=== PATIENT | female | born 1985 | race Caucasian/White ===

== ENCOUNTER 2024-06-04 18:18 | Emergency (ER) | payer OTHER, SELFPAY ==
--- NOTE | ~2024-06-04 | CT_ITS ---
EXAMINATION: CT ABDOMEN AND PELVIS WITHOUT CONTRAST CLINICAL INFORMATION: right flank pain, hematuria COMPARISON: None available. TECHNIQUE: Multidetector volumetric imaging was performed from the superior aspect of the liver through the pubic symphysis. Sagittal and coronal reformatted images were obtained on the technologist's workstation. This CT examination was performed using dose optimization techniques as appropriate, variously including the following: *Automated exposure control *Adjustment of mA and/or kV according to patient size (this includes techniques or standardized protocols for targeted exams where dose is matched to indication/reason for exam; i.e. extremities or head) *Use of iterative reconstruction technique DLP: 1141 mGy-cm FINDINGS: LUNG BASES: The visualized lung bases are unremarkable. LIVER, GALLBLADDER, AND BILIARY TREE: Diffuse low-attenuation of liver parenchyma due to fatty change. No focal liver lesion or intrahepatic bile duct dilatation. The gallbladder is unremarkable with no evidence of radiopaque gallstones, gallbladder wall thickening, or obvious pericholecystic inflammatory changes. PANCREAS: Unremarkable. SPLEEN: Unremarkable. ADRENAL GLANDS: Unremarkable. KIDNEYS AND URETERS: The kidneys are normal in size, shape, and attenuation. No hydronephrosis, hydroureter, or calculi seen. No perinephric stranding. BLADDER: Unremarkable. GASTROINTESTINAL TRACT: The small and large bowel are unremarkable. The appendix is unremarkable. ABDOMINAL WALL: No significant hernia is appreciated. LYMPH NODES: Normal. VASCULAR: Unremarkable. PELVIC VISCERA: Unremarkable. OSSEOUS STRUCTURES: Unremarkable. CT/CT abdomen pelvis wo IV con IMPRESSION: 1. No acute abnormality CT scan abdomen pelvis. 2. Diffuse fatty change of liver. 3. No urinary calculi or hydronephrosis. Fleischner guidelines were followed. Electronically signed by: Ilir Machado MD 06/04/2024 10:04 PM EDT
--- NOTE | 2024-06-04 19:28 | ED.ABDPAIN ---
HPI - Abdominal Pain General Chief Complaint: Urogenital-Female Stated Complaint: Sharp pain in ribs/Nausea sent UC Time Seen by Provider: 06/04/24 22:33 Source: patient, RN notes reviewed and old records reviewed Mode of arrival: ambulatory Limitations: no limitations History of Present Illness ED Provider: Ana AZEVEDO narrative: 38-year-old female presents for evaluation of right flank pain and lower abdominal pain. Her pain started 4 days ago. She endorses cloudy urine. She also endorses frequency but denies burning with urination Her pain waxes and wane is currently a 5/10. She has a history of kidney stones. Denies any trauma to the back or flank Denies any fevers, chills No other complaints or concerns at this time Related Data Previous Rx's ?Medication ?Instructions ?Recorded cefuroxime axetil 250 mg tablet 250 mg PO Q12H #14 tabs 06/04/24 phenazopyridine 200 mg tablet 200 mg PO TID PRN pain 6 doses #6 06/04/24 (Pyridium) tabs Allergies Allergy/AdvReac Type Severity Reaction Status Date / Time No Known Allergies Allergy Verified 06/04/24 19:31 Review of Systems Constitutional: Denies chills and Denies fever(s) Denies sore throat Cardiovascular: Denies chest pain and Denies dyspnea Respiratory: Denies cough and Denies dyspnea Gastrointestinal: Reports abdominal pain, Denies nausea and Denies vomiting Genitourinary: Denies dysuria and Reports pelvic pain Musculoskeletal: Reports back pain Skin/Breast: Denies rash PMFSH Social History Social History Smoked in Last 30 Days: No Use of substances other than those prescribed or required for medical reasons: No Advance Directives: No Advance Directives Information Provided: No Do you have a plan to hurt others: No Plan Patient : No Physical Exam ED Vital Signs: Vital Signs - 24 hr 06/04/24 19:29 06/04/24 22:19 Temperature 98.4 F 99.6 F Pulse Rate 95 88 Respiratory Rate 20 16 Blood Pressure 136/95 H 121/76 Pulse Oximetry 97 98 Oxygen Delivery Method Room Air Room Air BMI result Body Mass Index 50.4 Const General: healthy appearing, comfortable, no acute distress, alert and awake Nutritional Appearance: well nourished Orientation/consciousness: patient oriented x3 HENMT Head: Yes normocephalic and Yes atraumatic Eyes Eyelids: Yes eyelids normal Conjunctivae: conjunctivae normal Sclerae: sclerae normal Corneas: corneas normal Pupils: Equal, round and reactive pupils present EOM: EOMs intact bilaterally Neck Neck: Yes full ROM Resp Effort & Inspection: normal respiratory effort, able to speak in complete sentences and not labored GI Inspection: No distended Palpation (GI): Soft to palpation, not firm, Tenderness to palpation present (GI) (Right flank tenderness) suprapubicly, no guarding and not rigid Other: Negative CVA tenderness Neuro General: patient oriented x3 Cranial nerves: Yes Equal, round and reactive pupils present and Yes Bilaterally intact EOM present Cognition (Neuro): normal cognition Extrem Other: Moving all extremities well without any obvious deformities Course Course Course Narrative: This is a Rapid Medical Examination (RME) performed by Mariella Angel PA-C in triage. Full HPI, ROS, assessment and treatment plan per primary provider in the Main ED. \ 38-year-old female presents to the ER for evaluation of worsening right-sided flank pain for the last 4 days. Patient reports the pain is in her right posterior ribs, radiates to the front of her abdomen to her right lower quadrant. She endorses nausea and pain with deep inspiration. Seen at the urgent Care [facility], told she had blood in her urine and to come to the ER for evaluation. In triage patient appears uncomfortable, no CVA tenderness. No right lower quadrant tenderness. Plan: Lab work, UA, CT scan Medical Decision Making Medical Decision Making [facility] Narrative: 38-year-old female presents for evaluation of right flank pain, cloudy urine. Her urinalysis is consistent with a UTI, her labs are reassuring, CT scan shows no evidence of obstructive uropathy or obvious perinephric fat stranding. [place] [id number], chemistries are significant for a mild transaminitis, the patient is status post cholecystectomy, so biliary disease is favored to be less likely. We will treat the patient for complicated urinary tract infection as she was experiencing right flank pain. There was no evidence of sepsis Differential Diagnosis Differential Diagnoses: The differential diagnosis associated with the presentation includes UTI Pyelonephritis Obstructive uropathy Flank pain Muscle strain Lab Data [facility] Lab Attestation statement: I reviewed the patient's lab results. 06/04/24 19:52 06/04/24 19:52 Labs: Lab Results 06/04/24 06/04/24 Range/Units 19:52 22:18 WBC 12.0 H (4.8-10.8) X10*3/uL RBC 4.33 (4.20-5.50) X10*6/uL Hgb 12.3 (12.0-16.0) g/dl Hct 36.6 L (37.0-47.0) % MCV 84.5 (80.0-98.0) fL MCH 28.4 (27.0-33.0) pg MCHC 33.6 (31.0-35.0) g/dl RDW 13.9 (11.0-16.0) % Plt Count 382 (160-400) X10*3/uL MPV 10.2 (9.4-12.3) fL Immature Gran % (Auto) 0.3 (0.0-0.4) % Neut % (Auto) 66.3 (45-73) % Lymph % (Auto) 25.3 (20-40) % [place] % (Auto) 6.8 (2-11) % Eos % (Auto) 0.6 (0-4) % Baso % (Auto) 0.7 (0-2) % Lymph # (Auto) 3.0 (1.2-4.9) X10*3/uL [place] # (Auto) 0.8 (0.1-1.2) X10*3/uL Eos # (Auto) 0.1 (0.0-0.4) X10*3/uL Baso # (Auto) 0.1 (0.0-0.2) X10*3/uL Abs Immat Gran (auto) 0.03 (0.00-0.03) X10*3/uL Absolute Neuts (auto) 8.0 (2.0-8.3) x10*3/uL Absolute Nucleated RBC 0.000 (0.0-0.012) X10*3/uL Nucleated RBC % (auto) 0.0 (0.0-0.2) /100WBC Sodium 140 (135-145) mmol/L Potassium 3.8 (3.3-5.1) mmol/L Chloride 106 (96-108) mmol/L Carbon Dioxide 25 (22-29) mmol/L Anion Gap 13 (12-20) BUN 5 L (9-16) mg/dL Creatinine 0.76 (0.5-1.4) mg/dL Estim Creat Clear Calc 124.4 Estimated GFR > 60 Random Glucose 104 (60-115) mg/dL Calcium 9.3 (8.4-10.2) mg/dL Magnesium 1.9 (1.6-2.6) mg/dL Total Bilirubin 0.3 (0.0-1.0) mg/dL Direct Bilirubin 0.2 (0.0-0.5) mg/dL AST 38 H (5-31) U/L ALT 46 H (0-31) U/L Alkaline Phosphatase 130 H (39-117) U/L Total Protein 7.8 (6.5-8.0) g/dL Albumin 3.9 (3.5-5.0) g/dL Beta HCG, Quant < 2 mIU/mL Urine Color Yellow Urine Appearance Cloudy Urine pH 7.5 (5.0-9.0) Ur Specific [place] 1.015 (1.005-1.025) Urine Protein 30 (1+) H (Neg-Trace) mg/dL Urine Glucose (UA) Negative (Negative) mg/dL Urine Ketones Negative (Negative) mg/dL Urine Blood Trace H (Negative) Urine Nitrite Negative (Negative) Ur Leukocyte Esterase Large (3+) H (Negative) Urine RBC 3-5 H (0-2) /HPF Urine WBC >50 H (0-5) /HPF Ur Squamous Epith Cells 11-20 (0-2) /HPF Urine Bacteria 3+ (None Seen) Hyaline Casts 0-2 (0-2) /LPF Independent Interpretation I performed an independent interpretation of an: CT Scan Interpretation: Agree with Radiology interpretation Radiology Impression Discussion of test interpretation with radiology: I have reviewed the radiologist's reading. Radiologist Impression: FINDINGS: LUNG BASES: The visualized lung bases are unremarkable. LIVER, GALLBLADDER, AND BILIARY TREE: Diffuse low-attenuation of liver parenchyma due to fatty change. No focal liver lesion or intrahepatic bile duct dilatation. The gallbladder is unremarkable with no evidence of radiopaque gallstones, gallbladder wall thickening, or obvious pericholecystic inflammatory changes. PANCREAS: Unremarkable. SPLEEN: Unremarkable. ADRENAL GLANDS: Unremarkable. KIDNEYS AND URETERS: The kidneys are normal in size, shape, and attenuation. No hydronephrosis, hydroureter, or calculi seen. No perinephric stranding. BLADDER: Unremarkable. GASTROINTESTINAL TRACT: The small and large bowel are unremarkable. The appendix is unremarkable. ABDOMINAL WALL: No significant hernia is appreciated. LYMPH NODES: Normal. VASCULAR: Unremarkable. PELVIC VISCERA: Unremarkable. OSSEOUS STRUCTURES: Unremarkable. CT/CT abdomen pelvis wo IV con IMPRESSION: 1. No acute abnormality CT scan abdomen pelvis. 2. Diffuse fatty change of liver. 3. No urinary calculi or hydronephrosis. Fleischner guidelines were followed. Discharge Plan Discharge Clinical Impression: UTI (urinary tract infection) Patient Disposition: Home, Self-Care Instructions: Urinary Tract Infection in Women (ED) Additional Instructions: Your workup in the ER was reassuring pain You did have evidence of a urinary tract infection that is likely contributing to your pain. Take cefuroxime twice daily for 7 days and Pyridium as needed for pain and discomfort. This will turn your urine orange, this is a normal side effect and will resolve when you stop taking it Follow-up with your primary doctor, return for new or worsening symptoms Prescriptions: New phenazopyridine [Pyridium] 200 mg tablet 200 mg PO TID PRN (Reason: pain) Qty: 6 0RF cefuroxime axetil 250 mg tablet 250 mg PO Q12H Qty: 14 0RF Print Language: [place]ian
[2024-06-04 19:29] VITALS: BP 136/95; PULSE 95; RESP 20; TEMP 36.9; O2SAT 97; BMI 50.4
[2024-06-04 19:56] LABS: MANUAL DIFF FLAG NO
[2024-06-04 20:06] LABS: Basophils Absolute Auto 0.1 X10*3/uL (0.0-0.2); Basophils Percent Auto 0.7 % (0-2); Eosinophils Absolute Auto 0.1 X10*3/uL (0.0-0.4); Eosinophils Percent Auto 0.6 % (0-4); Hematocrit 36.6 % (37.0-47.0); Hemoglobin 12.3 g/dl (12.0-16.0); Imm Gran Abs Auto 0.03 X10*3/uL (0.00-0.03); Imm Gran Pct Auto 0.3 % (0.0-0.4); Lymphocytes Percent Auto 25.3 % (20-40); Mean Corpuscular HGB Conc 33.6 g/dl (31.0-35.0); Mean Corpuscular Hemoglobin 28.4 pg (27.0-33.0); Mean Corpuscular Volume 84.5 fL (80.0-98.0); Mean Platelet Volume 10.2 fL (9.4-12.3); Monocytes Absolute Auto 0.8 X10*3/uL (0.1-1.2); Monocytes Percent Auto 6.8 % (2-11); Neutrophils Percent Auto 66.3 % (45-73); Platelet Count 382 X10*3/uL (160-400); Red Blood Count 4.33 X10*6/uL (4.20-5.50); Red Cell Distribution Width 13.9 % (11.0-16.0)
[2024-06-04 20:21] LABS: Alanine Aminotransferase 46 U/L (0-31); Albumin Level 3.9 g/dL (3.5-5.0); Alkaline Phosphatase 130 U/L (39-117); Anion Gap 13 (12-20); Aspartate Amino Transferase 38 U/L (5-31); Bilirubin Direct 0.2 mg/dL (0.0-0.5); Bilirubin Total 0.3 mg/dL (0.0-1.0); Blood Urea Nitrogen 5 mg/dL (9-16); Calcium 9.3 mg/dL (8.4-10.2); Carbon Dioxide 25 mmol/L (22-29); Chloride 106 mmol/L (96-108); Creatinine Clr Calc Pharmacy 124.4; Estimated Glomerular Filt Rate > 60; Glucose Random 104 mg/dL (60-115); Magnesium 1.9 mg/dL (1.6-2.6); Potassium 3.8 mmol/L (3.3-5.1); Sodium 140 mmol/L (135-145); Total Protein 7.8 g/dL (6.5-8.0)
[2024-06-04 20:24] LABS: HCG Quantitative < 2 mIU/mL
[2024-06-04 22:19] VITALS: BP 121/76; PULSE 88; RESP 16; TEMP 37.6; O2SAT 98
[2024-06-04 22:37] LABS: Appearance Urine Cloudy; Color Urine Yellow; Glucose Urine UA Negative (Negative); Leukocyte Esterase Urine Large (3+) (Negative); Nitrite Urine Negative (Negative); PH 7.5 (5.0-9.0); Specific Gravity - Urine 1.015 (1.005-1.025); UMIC TRIGGER UACC YES; Urine Blood Trace (Negative); Urine Ketones Negative (Negative); Urine Protein 30 (1+) mg/dL (Neg-Trace)
[2024-06-04 22:43] LABS: Bacteria Urine 3+ (None Seen); Hyaline Casts Urine 0-2 /LPF (0-2); UACC Culture Trigger YES; WBC Urine >50 /HPF (0-5)
[2024-06-04] MEDS: Phenazopyridine HCL 200 MG TABLET PO (23:06)
[2024-06-04] MEDS: cefuroxime axetiL 250 MG TABLET PO (23:07)
[2024-06-04 23:08] VITALS: BP 133/78; PULSE 93; RESP 18; TEMP 37.3; O2SAT 98
[2024-06-04 23:12] VITALS: BP 133/78; PULSE 93; RESP 18; TEMP 37.3; O2SAT 98
== END 2024-06-04 23:13 | disposition home or self-care (01) ==
PROVIDERS: Physician Assistant; Emergency Provider Emergency Medicine
DX: N39.0 Urinary tract infection, site not specified (principal); R11.2 Nausea with vomiting, unspecified; R10.31 Right lower quadrant pain; Z79.899 Other long term (current) drug therapy; Z87.442 Personal history of urinary calculi
CPT/HCPCS: 36415; 74176; 80048; 80076; 81001; 83735; 84702; 85025; 87086; 87088; 87186; 99284